=== PATIENT | female | born 1945 | race Two or more races ===

== ENCOUNTER → 2019-11-03 | Outpatient (CLI) | payer OTHER ==
[~2019-11-03] MED LIST: CARAFATE1 G; CLARINEX5 MG/TAB; CRESTOL; PREVACID15 MG; SYNTHROID75 MCG; SYNTROID; ZANTAC300 MG
== END | disposition home or self-care (01) ==
LOC: RAD 14:43
DX: R07.89 Other chest pain (principal)

== ENCOUNTER 2021-09-23 13:51 | Inpatient (IN) | payer OTHER ==
[~2021-09-23] VITALS: Ht 157.5 cm; Wt 70.8 kg
[2021-09-23] MEDS ORDERED: BREO ELLIPTA 21 EACH IH (15:58)
[2021-09-23] MEDS ORDERED: CRESTOR5 MG PO (15:58)
[2021-09-23] MEDS ORDERED: SYMBICORT 16010.2 GM IH (15:58)
[2021-09-26] MEDS ORDERED: FLONASE16 GM (13:58)
[2021-09-26] MEDS ORDERED: ESOMEPRAZOLE MA40 MG (13:58)
== END 2021-09-27 09:31 | disposition home or self-care (01) | DRG 741 ==
LOC: O/R 09-26 06:42 → SURH 09-26 10:00 → OB/GYN 09-26 15:02
PROVIDERS: ADMIT Obstetrics & Gynecology Gynecologic Oncology; ATTEND Obstetrics & Gynecology Gynecologic Oncology
PROC: 0UT24ZZ Resection of Bilateral Ovaries, Percutaneous Endoscopic Approach (ICD-10-PCS; 2021-09-26)
PROC: 0UT74ZZ Resection of Bilateral Fallopian Tubes, Percutaneous Endoscopic Approach (ICD-10-PCS; 2021-09-26)
PROC: 07BC4ZZ Excision of Pelvis Lymphatic, Percutaneous Endoscopic Approach (ICD-10-PCS; 2021-09-26)
PROC: 0UT94ZZ Resection of Uterus, Percutaneous Endoscopic Approach (ICD-10-PCS; principal; 2021-09-26 12:20)
DX: C54.1 Malignant neoplasm of endometrium (principal); N72 Inflammatory disease of cervix uteri; N83.312 Acquired atrophy of left ovary; N83.311 Acquired atrophy of right ovary

== ENCOUNTER 2023-06-05 13:28 | Emergency (ER) | payer OTHER ==
[~2023-06-05] VITALS: Ht 157.5 cm; Wt 69.9 kg
[~2023-06-05 13:28] MED LIST changes: +BREO ELLIPTA 21 EACH IH; +CRESTOR5 MG PO; +ESOMEPRAZOLE MA40 MG; +FLONASE16 GM; +SYMBICORT 16010.2 GM IH
[2023-06-05] MEDS ORDERED: ACETAMINOPHEN325 M1 PO (13:50)
== END 2023-06-05 17:41 | disposition home or self-care (01) ==
LOC: ER 13:28
DX: M54.9 Dorsalgia, unspecified (principal)
CPT/HCPCS: 96372; 99283; J1885; J2360